=== PATIENT | male | born 1965 | race Caucasian/White ===

== ENCOUNTER 2024-01-06 13:33 | Emergency (ER) | payer BC ==
[2024-01-06] MEDS ORDERED: NA CHLORIDE 0.9% 1,000 ML ONE ×2 (14:29→16:11)
[2024-01-06] MEDS ORDERED: FAMOTIDINE 20 MG/2 ML VIAL IV ONE (14:29)
--- NOTE | 2024-01-06 14:40 | RAD REPORT ---
Abdomen Exam Limited: 01/06/2024 2:29 PM CLINICAL HISTORY: ABD PAIN STUDY: Limited right upper quadrant ultrasound of abdomen. COMPARISON: None. FINDINGS: Liver: No significant abnormality. Bile ducts: The common bile duct is dilated at 8 mm. Gallbladder: Mild gallbladder wall thickening measuring 4 mm. Cholelithiasis is present. The gallblad malcom is distended. A sonographic Caicedo sign was reported. IMPRESSION: Cholelithiasis with sonographic findings concerning for acute cholecystitis. The common bile duct is dilated at 8 mm. Could consider MRCP to further evaluate.
[2024-01-06 14:50] LABS: Absolute Lymphocytes (CBC) 1.3 K/uL (0.7-4.9); Absolute Monocytes 1.2 K/uL (0.1-1.3); Absolute Neutrophil 8.6 K/uL (1.8-8.0); Basophils % 0.3 % (0-1.3); Eosinophils % 0.4 % (0-4.4); Hematocrit 45.4 % (39.6-49.0); Hemoglobin 15.1 g/dL (13.6-17.9); MCHC 33.3 g/dL (32.0-36.0); MCV 89.9 fL (80-100); MPV 8.7 fL (7.6-11.3); Monocytes % 10.9 % (3.3-12.3); Neutrophils % 76.4 % (41.7-73.7); Platelets 219 thou/uL (152-406); RBC Red Blood Cell Count 5.05 M/uL (4.33-5.43); Red Cell Distribution Width 13.8 % (12.1-15.2)
[2024-01-06 15:24] LABS: ALT/SGPT 802 U/L (16-61); AST/SGOT 384 U/L (15-37); Alkaline Phosphatase 161 U/L (45-117); BUN Blood Urea Nitrogen 14 mg/dL (7-18); Bicarbonate 29 mEq/L (21-32); Bilirubin Total 8.4 mg/dL (0.2-1.0); Glomerular Filtration Rate 81 ml/min (=/>90); Glucose Level 97 mg/dL (74-106); Lipase 267 U/L (13-75); Sodium Level 140 mEq/L (136-145)
[2024-01-06 15:25] LABS: Troponin High Sensitivity < 3.0 pg/mL (<58.9)
--- NOTE | 2024-01-06 15:28 | RAD REPORT ---
EXAMINATION: ONE VIEW CHEST XR CLINICAL INDICATION: Male, 58 years old.CHEST PAIN TECHNIQUE: 1 View, AP supine, X-ray of the chest was performed. [id number]. COMPARISON: No prior exam. FINDINGS: Lungs and pleura: Clear lungs. No effusion. Heart and mediastinum: Normal heart size. Unremarkable mediastinal contours. Osseous structures: No acute abnormality. Tubes/lines: None Other: None. IMPRESSION: No acute intrathoracic abnormality.
--- NOTE | 2024-01-06 15:50 | ER ---
Nurse's Notes [facility] Name: Omar Enciso Jr Age: 58 yrs Sex: Male : 1965 Arrival Date: 01/06/2024 Time: 13:33 Bed 12 Private MD: Diagnosis: Other cholelithiasis without obstruction;Abnormal results of liver function studies;Acute cholecystitis Presentation: 01/05 13:34 Chief complaint: Patient states: he started having epigastric pain Friday01/04/24 at ap3 approx 5pm. patient states his pain is currently a 5/10 on the pain scale. patient states the pain does not radiate, and that vanilla ice cream helped the pain. Coronavirus screen: At this time, the client does not indicate any symptoms associated with coronavirus-19. Ebola Screen: No symptoms or risks identified at this time. Initial Sepsis Screen: Does the patient meet any 2 criteria? No. Patient's initial sepsis screen is negative. Does the patient have a suspected source of infection? No. Patient's initial sepsis screen is negative. Risk Assessment: Do you want to hurt yourself or someone else? Patient reports no desire to harm self or others. Onset of symptoms was January 04, 2024. Care prior to arrival: None. Mechanism of Injury: No Mechanism of Injury. 13:34 Method Of Arrival: EMS: [facility] ap3 13:34 Acuity: SIMA 2 ap3 Triage Assessment: 13:36 General: Appears in no apparent distress. Behavior is calm, cooperative, appropriate ap3 for age. Pain: Complains of pain in epigastric area and right upper quadrant Pain currently is 5 out of 10 on a pain scale. Pain began gradually, 2-3 days ago. Neuro: Level of Consciousness is awake, alert, obeys commands, Oriented to person, place, time, situation, Appropriate for age Speech is normal. Cardiovascular: Patient's skin is warm and dry. Respiratory: Airway is patent Respiratory effort is even, unlabored, Respiratory pattern is regular, symmetrical. GI: Reports upper abdominal pain. Historical: - Allergies: 13:36 No Known Allergies; ap3 - Home Meds: 13:36 None [Active]; ap3 - PMHx: 13:36 None; ap3 - Immunization history:: Client reports receiving the 2nd dose of the Covid vaccine. - Infectious Disease History:: Denies. - Social history:: Smoking status: Patient denies any tobacco usage or history of. Patient uses alcohol, occasionally. Screenin:37 [facility] ED Fall Risk Assessment (Adult) History of falling in the last 3 months, ap3 including since admission No falls in past 3 months (0 pts) Confusion or Disorientation No (0 pts) Intoxicated or Sedated No (0 pts) Impaired Gait No (0 pts) Mobility Assist Device Used No (0 pt) Altered Elimination No (0 pt) Score/Fall Risk Level 0 - 2 = Low Risk Oriented to surroundings, Maintained a safe environment, Educated pt \T\ family on fall prevention, incl call for assistance when getting out of bed, Assessed \T\ reinforced patient's understanding of fall precautions, Hourly rounding (assess needs \T\ fall precautionary measures) done, Used ambulatory aids as needed (educated on \T\ assisted with), Used gait belt as appropriate. Abuse screen: Denies threats or abuse. Nutritional screening: No deficits noted. Tuberculosis screening: No symptoms or risk factors identified. Assessment: 15:37 General: Appears in no apparent distress. uncomfortable, Behavior is. Pain: Complains jb4 of pain in epigastric area Pain does not radiate. Pain currently is 5 out of 10 on a pain scale. Neuro: Level of Consciousness is awake, alert, obeys commands, Oriented to person, place, time, situation. Cardiovascular: Patient's skin is warm and dry. Respiratory: Airway is patent Respiratory effort is even, unlabored, Respiratory pattern is regular, symmetrical. GI: Reports upper abdominal pain. : No signs and/or symptoms were reported regarding the genitourinary system. EENT: No signs and/or symptoms were reported regarding the EENT system. Derm: Skin is intact, Skin is pink, warm \T\ dry. Musculoskeletal: Circulation, motion, and sensation intact. Range of motion: intact in all extremities. 17:00 Reassessment: Patient appears in no apparent distress at this time. Patient and/or jb4 family updated on plan of care and expected duration. Pain level reassessed. Patient is alert, oriented x 3, equal unlabored respirations, skin warm/dry/pink. 18:47 Reassessment: Patient appears in no apparent distress at this time. Patient and/or jb4 family updated on plan of care and expected duration. Pain level reassessed. Patient is alert, oriented x 3, equal unlabored respirations, skin warm/dry/pink. 20:02 Reassessment: Patient appears in no apparent distress at this time. Patient and/or jb4 family updated on plan of care and expected duration. Pain level reassessed. Patient is alert, oriented x 3, equal unlabored respirations, skin warm/dry/pink. 21:00 Reassessment: Report given to SUKUMAR Tompkins. jb4 22:10 Reassessment: Patient appears in no apparent distress at this time. Patient and/or jb4 family updated on plan of care and expected duration. Pain level reassessed. Patient is alert, oriented x 3, equal unlabored respirations, skin warm/dry/pink. Report given to SUKUMAR [facility]. Vital Signs: 13:34 BP 110 / 81; Pulse 75; Resp 17; Temp 98.9(O); Pulse Ox 99% ; Weight 92.99 kg; Height 6 ap3 ft. 1 in. ; Pain 5/10; 15:31 BP 132 / 78; Pulse 76; Resp 19; Pulse Ox 100% ; jb4 18:47 BP 116 / 76; Pulse 92; Resp 22; Pulse Ox 99% on R/A; jb4 20:02 BP 111 / 74; Pulse 87; Resp 17; Pulse Ox 99% on R/A; jb4 21:00 BP 109 / 76; Pulse 77; Resp 16; Pulse Ox 97% on R/A; jb4 13:34 Body Mass Index 27.05 (92.99 kg, 185.42 cm) ap3 13:34 Pain Scale: Adult ap3 ED Course: 13:34 Patient arrived in ED. ap3 13:34 [facility]C [facility] kb 13:34 Nic Odonnell DO is Attending Physician. kb 13:36 Triage completed. ap3 13:37 Arm band placed on right wrist. ap3 13:37 Patient has correct armband on for positive identification. Bed in low position. Call ap3 light in reach. Side rails up X 1. Adult w/ patient. Provided Education on: fall risk education and call light education. Client placed on continuous cardiac and pulse oximetry monitoring. NIBP monitoring applied. sheet tester on. Pulse ox on. NIBP on. 13:38 Pearl Arizmendi, RN is Primary Nurse. ap3 13:44 EKG done, by ED staff, reviewed by Anju ALONSO. ap3 14:31 Abdomen Limited US In Process Unspecified. EDMS 14:42 Initial lab(s) drawn, by me, sent to lab. Inserted saline lock: 22 gauge in left tm3 antecubital area, using aseptic technique. 15:21 XRAY Chest (1 view) In Process Unspecified. EDMS 17:32 initiated transfer to [facility]. bd 20:19 Pt accepted to [facility] by Dr. Allen. rv1 22:11 No provider procedures requiring assistance completed. Patient transferred, IV remains jb4 in place. Administered Medications: 14:42 Drug: Famotidine IVP 20 mg IVP once; dilute with 10 mL 0.9% NaCl; give over 2 minutes ap3 Route: IVP; Site: left antecubital; 14:43 Drug: NS 0.9% IV 1000 ml IV at 1 bolus Per protocol; to be given as a bolus over 60 ap3 minutes Route: IV; Rate: 1 bolus; Site: left antecubital; 16:45 Drug: Piperacillin-Tazobactam IVPB 3.375 grams IVPB once over 60 mins; (mix in NS 100 jb4 mL) Route: IVPB; Infused Over: 60 mins; Site: left antecubital; 17:45 Follow up: Response: No adverse reaction; IV Status: Completed infusion; IV Intake: jb4 100ml 16:45 Drug: NS 0.9% IV 1000 ml IV at 125 ml/hr continuous Route: IV; Rate: 125 ml/hr; Site: jb4 left antecubital; 22:12 Follow up: Response: No adverse reaction; IV Status: Infusion continued upon transfer jb4 Medication: 21:00 VIS not applicable for this client. jb4 Intake: 17:45 IV: 100ml; Total: 100ml. jb4 Outcome: 15:50 ER care complete, transfer ordered by MD. guajardo 22:11 Transferred by ground EMS to [facility], Transfer form completed. jb4 X-rays sent w/ patient. 22:11 Condition: stable 22:11 Discharge instructions given to patient, Instructed on the need for transfer, Demonstrated understanding of instructions, 22:12 Patient left the ED. jb4 Signatures: Dispatcher [employer] EDMS Anju Lyons, TUBE BLOWER-C TUBE BLOWER-Ckb Brenda Tyson, Tucker 3 Quinn Espinal, RN RN jb4 Pearl Arizmendi RN RN ap3 Sangeetha Atkinson rv1 Corrections: (The following items were deleted from the chart) 20:42 14:45 Piperacillin-Tazobactam IVPB 3.375 grams IVPB in left antecubital over 60 mins [id number]
--- NOTE | 2024-01-06 15:50 | EDPHYS ---
Physician Documentation [facility] Name: Omar Enciso Jr Age: 58 yrs Sex: Male : 1965 Arrival Date: 01/06/2024 Time: 13:33 Bed 12 Private MD: ED Physician Nic Odonnell HPI: 01/05 13:47 This 58 yrs old Male presents to ER via EMS with complaints of epigastric pain. kb 13:47 Pt is a 58 year old male who presents for epigastric pain that started at 1700 on kb Friday. States he has been taking antacids without relief. Reports the pain is intermittent. States he has had nausea when the pain was at it's worst. Denies shortness of breath, vomiting, fever. . Historical: - Allergies: 13:36 No Known Allergies; ap3 - Home Meds: 13:36 None [Active]; ap3 - PMHx: 13:36 None; ap3 - Immunization history:: Client reports receiving the 2nd dose of the Covid vaccine. - Infectious Disease History:: Denies. - Social history:: Smoking status: Patient denies any tobacco usage or history of. Patient uses alcohol, occasionally. ROS: 13:44 Constitutional: As per HPI kb Exam: 13:44 Constitutional: This is a well developed, well nourished patient who is awake, alert, kb and in no acute distress. Head/Face: Normocephalic, atraumatic. ENT: Moist Mucous membranes Cardiovascular: Regular rate Respiratory: Respirations even and unlabored. No increased work of breathing. Talking in full sentences Skin: Warm, dry with normal turgor. Normal color. MS/ Extremity: Pulses equal, no cyanosis. Neurovascular intact. Full, normal range of motion. Neuro: Awake and alert, GCS 15, oriented to person, place, time, and situation. 13:44 ECG was reviewed by the Attending Physician. 13:44 Abdomen/GI: Inspection: abdomen appears normal, Bowel sounds: normal, Palpation: soft, in all quadrants, mild abdominal tenderness, in the right upper quadrant, Vital Signs: 13:34 BP 110 / 81; Pulse 75; Resp 17; Temp 98.9(O); Pulse Ox 99% ; Weight 92.99 kg; Height 6 ap3 ft. 1 in. ; Pain 5/10; 15:31 BP 132 / 78; Pulse 76; Resp 19; Pulse Ox 100% ; jb4 18:47 BP 116 / 76; Pulse 92; Resp 22; Pulse Ox 99% on R/A; jb4 20:02 BP 111 / 74; Pulse 87; Resp 17; Pulse Ox 99% on R/A; jb4 21:00 BP 109 / 76; Pulse 77; Resp 16; Pulse Ox 97% on R/A; jb4 13:34 Body Mass Index 27.05 (92.99 kg, 185.42 cm) ap3 13:34 Pain Scale: Adult ap3 MDM: 13:34 Medical Screening Exam initiated kb 15:47 Differential diagnosis: cholecystitis, Cholelithiasis, non-specific abd pain, kb pancreatitis. Data reviewed: vital signs, nurses notes. Consideration of Admission/Observation Escalation of care including admission/observation considered. admission considered but discussed case with Dr Degroot who recommends transfer due to elevated LFTs, CBD dilation. Management of patient was discussed with the following: Electric Meter Repairer Apprentice: Dr Degroot recommends transfer. Historians other than the Patient: EMS: [facility]. 19:42 Historians other than the Patient: Dr Allen, hospitalist at [facility] accepts kb pt for transfer. Counseling: I had a detailed discussion with the patient and/or guardian regarding the historical points, exam findings, and any diagnostic results supporting the discharge/admit diagnosis, lab results, radiology results, the need for further work-up and treatment in the hospital. 01/05 13:35 Order name: CBC with Diff; Complete Time: 14:52 kb 01/05 13:35 Order name: CMP; Complete Time: 15:45 kb 01/05 13:35 Order name: Lipase; Complete Time: 15:45 kb 01/05 13:35 Order name: Troponin HS; Complete Time: 15:45 kb 01/05 13:35 Order name: Abdomen Limited US; Complete Time: 14:42 kb 01/05 13:35 Order name: XRAY Chest (1 view); Complete Time: 15:45 kb 01/05 13:35 Order name: IV Saline Lock; Complete Time: 15:24 kb 01/05 13:35 Order name: Labs collected and sent; Complete Time: 15:24 kb 01/05 13:35 Order name: Cardiac monitoring; Complete Time: 13:37 kb 01/05 13:35 Order name: EKG - Nurse/Tech; Complete Time: 13:44 kb 01/05 13:35 Order name: O2 Per Protocol; Complete Time: 13:37 kb 01/05 13:35 Order name: O2 Sat Monitoring; Complete Time: 13:38 kb EC:44 Rate is 68 beats/min. Rhythm is regular. QRS [place] is Normal. NE interval is normal at kb 142 msec. QRS interval is normal at 92 msec. QT interval is normal at 429 msec. Administered Medications: 14:42 Drug: Famotidine IVP 20 mg IVP once; dilute with 10 mL 0.9% NaCl; give over 2 minutes ap3 Route: IVP; Site: left antecubital; 14:43 Drug: NS 0.9% IV 1000 ml IV at 1 bolus Per protocol; to be given as a bolus over 60 ap3 minutes Route: IV; Rate: 1 bolus; Site: left antecubital; 16:45 Drug: Piperacillin-Tazobactam IVPB 3.375 grams IVPB once over 60 mins; (mix in NS 100 jb4 mL) Route: IVPB; Infused Over: 60 mins; Site: left antecubital; 17:45 Follow up: Response: No adverse reaction; IV Status: Completed infusion; IV Intake: jb4 100ml 16:45 Drug: NS 0.9% IV 1000 ml IV at 125 ml/hr continuous Route: IV; Rate: 125 ml/hr; Site: jb4 left antecubital; 22:12 Follow up: Response: No adverse reaction; IV Status: Infusion continued upon transfer jb4 Disposition: 17:39 I was immediately available on-site in the Emergency Department for consultation in the ms3 care of the patient. Disposition Summary: 01/06/24 15:50 Transfer Ordered Notes: Transfer Location: [facility] kb Reason: Higher level of care kb Condition: Stable kb Problem: new kb Symptoms: are unchanged kb Accepting Physician: Dr Allen(01/06/24 22:12) jb4 Diagnosis - Other cholelithiasis without obstruction kb - Abnormal results of liver function studies kb - Acute cholecystitis kb Forms: - Medication Reconciliation Form kb - SBAR form kb Signatures: Dispatcher [employer] EDMS Anju Lyons, SAMPLE COLOR MAKER-C SAMPLE COLOR MAKER-Quinn Amaral, RN RN jb4 Pearl Arizmendi RN RN ap3 Nic Odonnell DO DO ms3 Corrections: (The following items were deleted from the chart) 13:35 13:35 CBC+H.LAB.BRZ ordered. EDMS EDMS 13:35 13:35 COMPREHENSIVE METABOLIC PANEL+C.LAB.BRZ ordered. EDMS EDMS 13:35 13:35 LIPASE+C.LAB.BRZ ordered. EDMS EDMS 13:35 13:35 Troponin High Sensitivity+C.LAB.BRZ ordered. EDMS EDMS 19:42 15:50 Dr guajardo kb 22:12 19:42 Dr Tiffany guajardo jb4
[2024-01-06] MEDS ORDERED: NA CHLORIDE 0.9% 100 ML ONE (16:11)
[2024-01-06] MEDS ORDERED: PIPERACIL/TAZO 3.375 GM VIAL IV ONE (16:12)
[2024-01-07 03:46] VITALS: TEMP 98.9
[2024-01-07 04:04] VITALS: BP 109/76; O2SAT 97
--- NOTE | 2024-01-08 12:23 | EKG ---
Test Date: 2024-01-06 Test Time: 13:42:04 Pole Sander Operator: ALP MEASUREMENT RESULTS: Intervals: Rate: 68 MO: 142 QRSD: 92 QT: 404 QTc: 429 [place]: P: 52 MO: 142 QRS: 27 T: 43 INTERPRETIVE STATEMENTS: Normal sinus rhythm Normal ECG No previous ECG available for comparison Electronically Signed On 01-08-24 12:17:20 CDT by Sg Owens
== END 2024-01-06 22:12 | disposition short-term general hospital (02) ==
LOC: ER 13:33
DX: K80.00 Calculus of gallbladder with acute cholecystitis without obstruction (principal); R94.5 Abnormal results of liver function studies
CPT/HCPCS: 96365; 96361; 93005; 85025; 36415; 84484; 83690; 80053; 71045; 76705; 96375; 99285; J2543; J7030 ×2